=== PATIENT | female | born 1990 | race Caucasian/White ===

== ENCOUNTER → 2019-12-16 14:14 | Outpatient (BNVA) | payer BC, SELFPAY | PROVIDERS: Family Provider Physician Assistant Medical; PCP Physician Assistant Medical; Visit Provider Obstetrics & Gynecology | DX: Z78.9 Other specified health status (principal); N76.0 Acute vaginitis; B37.3 Candidiasis of vulva and vagina | CPT/HCPCS: 87210; 88175 ==

== ENCOUNTER → 2024-10-11 10:26 | Outpatient (BNVA) | payer BC, SELFPAY | PROVIDERS: Family Provider Physician Assistant Medical; PCP Physician Assistant Medical; Visit Provider Nurse Practitioner Women's Health | DX: Z34.90 Encounter for supervision of normal pregnancy, unspecified, unspecified trimester (principal) | CPT/HCPCS: 76815; 80307; 81025; 84443; 85025; 86592; 86762; 86803; 86850; 86900; 87086; 87340; 87491; 87591; 87661; 87806 ==

== ENCOUNTER → 2024-10-25 13:38 | Outpatient (BNVA) | payer BC, SELFPAY | PROVIDERS: Family Provider Physician Assistant Medical; PCP Physician Assistant Medical; Visit Provider Obstetrics & Gynecology | DX: Z34.80 Encounter for supervision of other normal pregnancy, unspecified trimester (principal) | CPT/HCPCS: 84315; 87624 ==

== ENCOUNTER → 2024-11-21 14:44 | Outpatient (BNVA) | payer BC, SELFPAY | PROVIDERS: Family Provider Physician Assistant Medical; PCP Physician Assistant Medical; Visit Provider Obstetrics & Gynecology | DX: Z34.92 Encounter for supervision of normal pregnancy, unspecified, second trimester (principal); Z3A.20 20 weeks gestation of pregnancy; R93.89 Abnormal findings on diagnostic imaging of other specified body structures | CPT/HCPCS: 76805 ==

== ENCOUNTER → 2024-12-02 16:04 | Outpatient (BNVA) | payer BC, SELFPAY | PROVIDERS: Family Provider Physician Assistant Medical; PCP Physician Assistant Medical; Visit Provider Obstetrics & Gynecology | DX: Z34.80 Encounter for supervision of other normal pregnancy, unspecified trimester (principal) | CPT/HCPCS: 84315 ==

== ENCOUNTER → 2024-12-20 08:05 | Outpatient (BNVA) | payer BC, SELFPAY | PROVIDERS: Family Provider Physician Assistant Medical; PCP Physician Assistant Medical; Visit Provider Obstetrics & Gynecology | DX: Z36.9 Encounter for antenatal screening, unspecified (principal) | CPT/HCPCS: 76816; 84315 ==

== ENCOUNTER → 2025-01-18 08:08 | Outpatient (BNVA) | payer BC, SELFPAY | PROVIDERS: Family Provider Physician Assistant Medical; PCP Physician Assistant Medical; Visit Provider Obstetrics & Gynecology | DX: Z34.80 Encounter for supervision of other normal pregnancy, unspecified trimester (principal) | CPT/HCPCS: 82950; 84315; 85025 ==

== ENCOUNTER → 2025-01-30 07:48 | Outpatient (BNVA) | payer BC, SELFPAY | PROVIDERS: Family Provider Physician Assistant Medical; PCP Physician Assistant Medical; Visit Provider Obstetrics & Gynecology | DX: Z34.80 Encounter for supervision of other normal pregnancy, unspecified trimester (principal) | CPT/HCPCS: 84315 ==

== ENCOUNTER 2025-02-02 14:50 | Outpatient (CLI) | payer BC, SELFPAY ==
[2025-02-02 14:50] VITALS: BMI 31.4
[2025-02-02 15:14] VITALS: BP 133/76; PULSE 71
--- NOTE | 2025-02-02 15:48 | USR_ITS ---
PROCEDURE INFORMATION: Exam: US Abdomen, Limited; Right Upper Quadrant Exam date and time: 02/02/2025 4:08 PM Age: 34 years old Clinical indication: Abdominal pain; Generalized TECHNIQUE: Imaging protocol: Real time ultrasound of the abdomen with image documentation. Limited exam focused on the right upper quadrant. COMPARISON: [place] [id number] 12/20/2024 8:09 AM FINDINGS: Liver: Normal. No masses. Gallbladder: Normal. No gallstones. There is no gallbladder wall thickening. Biliary ducts: Normal. No stones. No dilation. Pancreas: Visualized pancreas is unremarkable. Right kidney: Normal. No mass. No hydronephrosis. US/US gall bladder [id number] IMPRESSION: No acute findings.
[2025-02-02 17:20] VITALS: BP 111/72; PULSE 68
== END 2025-02-02 17:25 | disposition home or self-care (01) ==
LOC: OPOB 14:56 → OBGYN 14:57
PROVIDERS: Family Provider Physician Assistant Medical; PCP Physician Assistant Medical; Visit Provider Obstetrics & Gynecology
DX: O26.899 Other specified pregnancy related conditions, unspecified trimester (principal); Z3A.00 Weeks of gestation of pregnancy not specified; K82.9 Disease of gallbladder, unspecified; R10.9 Unspecified abdominal pain
CPT/HCPCS: 59025; 76705; 99211

== ENCOUNTER 2025-02-15 20:06 | Outpatient (CLI) | payer BC, SELFPAY ==
[2025-02-15] VITALS (10 sets, daily range): BP systolic 104–152; BP diastolic 57–84; PULSE 71–82; RESP 17; TEMP 36.6; O2SAT 100; BMI 32.4
--- NOTE | 2025-02-15 22:14 | USR_ITS ---
PROCEDURE INFORMATION: Exam: US , Limited Exam date and time: 02/15/2025 10:42 PM Age: 34 years old Clinical indication: Lmp or gestational age (in weeks): 32w 4 d by lmp; Antepartum complications; Bleeding; ; G3-p2-a0-l2 presenting with light spotting today, now resolved; Additional info: Vaginal bleeding, fluid levels, placenta location and condition, cervical LABS AND CLINICAL REPORTS: Last menstrual period start date: 07/02/2024 Gestational age (Established): 32 w 4 d Estimated due date (Established): 04/08/2025 TECHNIQUE: Imaging protocol: Real-time ultrasound of the maternal uterus with image documentation. Exam focused on the clinical indication. COMPARISON: [place] [id number] 12/20/2024 8:09 AM FINDINGS: Gestation: Intrauterine gestation. heart rate: 135 bpm presentation and position: Cephalic Placenta: Posterior and Left grade 1 placenta without previa. Amniotic fluid (Qualitative): Amniotic fluid volume is normal. Amniotic fluid index: NELSON is 16.7 cm. ANATOMY: midline falx: midline falx is normal. cerebellum: cerebellum is normal. lateral ventricles: lateral ventricles are normal. cisterna magna: cisterna magna is normal. choroid plexus: choroid plexus is normal. face: facial profile is normal. upper lip and nose are normal. kidneys: kidneys are normal. stomach: stomach is normal. urinary bladder: bladder is normal. spine: No visualized abnormalities of spine. Umbilical cord and insertion: 3-vessel umbilical cord is seen. BIOMETRY: Estimated due date (AUA): 04/03/2025 Estimated weight: 2183 g, 67th percentile. EFW by AC, BPD, FL, HC, Hadlock 1985 Biparietal diameter (BPD): 8.1cm. EGA (BPD) is 32 w 5 d. 46.5 % percentile Head circumference (HC): 30.5 cm. EGA (HC) is 34 w 0 d. 50.5 % percentile Abdominal circumference (AC): 29.5 cm. EGA (AC) is 33 w 3 d. 76.3 % percentile Femur length (FL): 6.4 cm. EGA (FL) is 33 w 1 d. 55.2 % percentile HC/AC: 1.03. (Normal range: 0.96 - 1.11) FL/HC: 21.05. (Normal range: 19.76 - 21.59) FL/BPD: 78.99. (Normal range: 71 - 87) FL/AC: 21.79. (Normal range: 20 - 24) MATERNAL: Cervix: Cervical length measures 3.3 cm. US/US OB limited [id number] IMPRESSION: Living Gutierrez fetus is in cephalic position. Normal amniotic fluid. Posterior placenta without evidence of previa.
== END 2025-02-16 00:05 | disposition home or self-care (01) ==
LOC: OPOB 20:11 → OBGYN 20:13
PROVIDERS: Family Provider Physician Assistant Medical; PCP Physician Assistant Medical; Visit Provider Obstetrics & Gynecology
DX: O26.859 Spotting complicating pregnancy, unspecified trimester (principal); Z3A.00 Weeks of gestation of pregnancy not specified; R10.9 Unspecified abdominal pain
CPT/HCPCS: 59025; 76815; 99211

== ENCOUNTER → 2025-03-02 08:37 | Outpatient (BNVA) | payer BC, SELFPAY | PROVIDERS: Family Provider Physician Assistant Medical; PCP Physician Assistant Medical; Visit Provider Obstetrics & Gynecology | DX: Z34.90 Encounter for supervision of normal pregnancy, unspecified, unspecified trimester (principal); Z36.9 Encounter for antenatal screening, unspecified | CPT/HCPCS: 76816; 84315 ==

== ENCOUNTER → 2025-03-15 08:04 | Outpatient (BNVA) | payer BC, SELFPAY | PROVIDERS: Family Provider Physician Assistant Medical; PCP Physician Assistant Medical; Visit Provider Obstetrics & Gynecology | DX: Z34.90 Encounter for supervision of normal pregnancy, unspecified, unspecified trimester (principal) | CPT/HCPCS: 84315; 87081 ==

== ENCOUNTER → 2025-03-22 08:33 | Outpatient (BNVA) | payer BC, SELFPAY | PROVIDERS: Family Provider Physician Assistant Medical; PCP Physician Assistant Medical; Visit Provider Obstetrics & Gynecology | DX: Z34.90 Encounter for supervision of normal pregnancy, unspecified, unspecified trimester (principal) | CPT/HCPCS: 84315 ==

== ENCOUNTER → 2025-03-29 14:04 | Outpatient (BNVA) | payer BC, SELFPAY | PROVIDERS: Family Provider Physician Assistant Medical; PCP Physician Assistant Medical; Visit Provider Obstetrics & Gynecology | DX: Z34.80 Encounter for supervision of other normal pregnancy, unspecified trimester (principal) | CPT/HCPCS: 84315 ==

== ENCOUNTER 2025-04-04 05:17 | Inpatient (IN) | payer BC, SELFPAY ==
--- NOTE | 2025-03-22 10:47 | P.ANESASSM_ITS ---
Pre-Anesthetic Assessment Height/Weight: Height 5 ft Preop Diagnosis: Planned Operation Date: 04/04/25 07:20 Proposed Procedures p Section Repeat(Not Applicable) - Robert Parish MD Was Beta Hermelindo taken within 24 hours: N/A Was Clonidine taken within 24 hours: N/A Social No alcohol and No tobacco Exam alert, oriented x 3, clear to auscultation bilaterally and regular rate & rhythm Airway Submandibular: within normal limits Cervical ROM: within normal limits Mallampati: Class III Dentition: full Anesthetic Plan ASA status: 2 Anesthesia: Regional (specify below) Other: No prior issues with anesthesia Patient here to discuss planned Patient admits to GERD during , on Pepcid Denies any cardiac or pulmonary issues Will obtain labs prior to procedure Plan for routine with spinal anesthesia Medications/Allergies Home Medications ?Medication ?Instructions ?Recorded ?Confirmed ?Last Taken ?Type tramadol 50 mg tablet 50 mg PO BID PRN pain #20 ta bs 02/02/25 03/22/25 Unknown Rx docusate sodium 100 mg capsule 100 mg PO BID #60 caps 03/02/25 03/22/25 Unknown Rx (Colace) famotidine 20 mg tablet (Pepcid) 20 mg PO BID #60 tabs 03/02/25 03/22/25 Unknown Rx magnesium hydroxide 400 mg/5 mL 5 ml PO DAILY PRN stom ach upset 03/02/25 03/22/25 Unknown Rx oral suspension (Milk of Magnesia) #3,000 mL metronidazole 0.75 % (37.5 mg/5 1 appful vaginal DAILY 5 days #70 03/15/25 03/22/25 Unknown Rx gram) vaginal gel (Vandazole) grams metronidazole 500 mg tablet 500 mg PO BID #14 tabs 08/2903/22/25 Unknown Rx Allergies Allergy/AdvReac Type Severity Reaction Status Date / Time No Known Allergies Allergy Verified 03/22/25 08:16 [facility] Anesthesia Medical History Blood type O+ Contraception management 02/15/2016: Started on Depo-Provera. Stopped 2017. Surgical History History of placement of ear tubes As a child History of section, low transverse (01/02/16) Repeat LTCS. Performed by Dr. Arevalo at [facility] in [place], [place]. History of section, low transverse (03/15/12) Performed by Dr. Dickey at [facility] in [place], [place]. (Operative report reviewed on 07/15/2015. Documented 2 layer closure of a low transverse section.). History of tonsillectomy and adenoidectomy (~2001) Family History Family/Other Hypertension maternal uncle Grandfather Hypertension maternal Hypercholesteremia maternal Family/Other Diabetes maternal aunt Sister Stroke Grandmother Breast cancer paternal Social History Smoking and tobacco/nicotine status: never used tobacco/nicotine Alcohol intake: former Substance/Drug Use: never
[2025-04-04] VITALS (38 sets, daily range): BP systolic 96–165; BP diastolic 41–118; PULSE 55–77; RESP 15–16; TEMP 36.4–36.9; O2SAT 99–100; BMI 32.9
--- OUTSIDE RECORDS SUMMARY | 2025-04-04 05:21 | XMS_ITS | Clinical Summary ---
Author Organization [facility] Address [facility] [place] [address] Care Team Providers Care Radial Saw Operator Name Role Phone Uma Sutton MD Primary Care Provider [phone] Allergies No known active allergies Medications predniSONE (DELTASONE) 20 mg tablet Take 1 Tablet (20 mg) by mouth daily. 7 Tablet 0 12/12/2020 Active Immunizations Immunization Administration Dates Next Due Dt Dtp Dtap Vaccine 07/07/2006,05/04/1996 Hepatitis B Vaccine 07/08/2004,06/30/2002,1995 Social History Tobacco Use Types Packs/Day Years Used Date Smoking Tobacco: Never Smokeless Tobacco: Never Alcohol Use Standard Drinks/Week Comments No 0 (1 standard drink = 0.6 oz pur e alcohol) Comments Unknown Sex and Gender Information Value Date Recorded Sex Assigned at Not on file Legal Sex Female 2:29 PM TYPER Gender Identity Not on file Sexual Orientation Not on file Last Filed Vital Signs Vital Sign Reading Time Taken Comments Blood Pressure 120/70 12/12/2020 4:04 PM TYPER Pulse 63 12/12/2020 4:04 PM TYPER Temperature 36.5 C (97.7 F) 12/12/2020 4:04 PM TYPER Respiratory Rate 16 12/12/2020 4:04 PM TYPER Oxygen Saturation - - Inhaled Oxygen Concentration - - Weight 63.6 kg (140 lb 3.2 oz) 12/12/2020 4:04 P M TYPER Height 152.5 cm (5' 0.05 ) 12/12/2020 4:04 PM CS T Body Mass Index 27.34 12/12/2020 4:04 PM TYPER Plan of Treatment Health Maintenance Due Date Last Done Comments HPV/Cotest (21-29) 2011 DTAP/TDAP/TD VACCINES (3 - Tdap) 07/07/2016 07/07/2006, 05/04/1996 CERVICAL CANCER SCREENING 2020 HPV/Cotest (30-65) 2020 PAP SMEAR 2020 INFLUENZA VACCINE (#1) 2024 , 11/23/2018 HEPATITIS B VACCINES Completed 07/08/2004, 06/30/2002, 07/06/1996 HPV VACCINES Aged Out No longer eligi ble based on patient's age to complete this topic Care Teams Radial Saw Operator Relationship Specialty Start Date End Date Uma Sutton MD [address] [id number] PCP - General 12/10/20
--- OUTSIDE RECORDS SUMMARY | 2025-04-04 05:21 | XMS_ITS | Clinical Summary ---
Author Organization [facility] [place] [facility] [address] Care Team Providers Care S3B Multi Sensor Operator Name Role Phone Uma Sutton MD Primary Care Provider [phone] Allergies No known active allergies Medications predniSONE (DELTASONE) 20 mg tablet Take 1 Tablet (20 mg) by mouth daily. 7 Tablet 12/12/2020 Active Active Problems No known active problems Immunizations Immunization Administration Dates Next Due Dt Dtp Dtap Vaccine 07/07/2006,05/04/1996 Hepatitis B Vaccine 07/08/2004,06/30/2002,1995 Social History Tobacco Use Types Packs/Day Years Used Date Smoking Tobacco: Never Smokeless Tobacco: Never Alcohol Use Standard Drinks/Week Comments No 0 (1 standard drink = 0.6 oz pur e alcohol) Comments No Sex and Gender Information Value Date Recorded Sex Assigned at Not on file Legal Sex Female 6:24 AM SECURITY FIELD SUPERVISOR Gender Identity Not on file Sexual Orientation Not on file Last Filed Vital Signs Vital Sign Reading Time Taken Comments Blood Pressure 120/70 12/12/2020 4:04 PM SECURITY FIELD SUPERVISOR Pulse 63 12/12/2020 4:04 PM SECURITY FIELD SUPERVISOR Temperature 36.5 C (97.7 F) 12/12/2020 4:04 PM SECURITY FIELD SUPERVISOR Respiratory Rate 16 12/12/2020 4:04 PM SECURITY FIELD SUPERVISOR Oxygen Saturation 99% 12/12/2020 4:04 PM SECURITY FIELD SUPERVISOR Inhaled Oxygen Concentration - - Weight 63.6 kg (140 lb 3.2 oz) 12/12/2020 4:04 P M SECURITY FIELD SUPERVISOR Height 152.5 cm (5' 0.05 ) 12/12/2020 4:04 PM CS T Body Mass Index 27.34 12/12/2020 4:04 PM SECURITY FIELD SUPERVISOR Plan of Treatment Health Maintenance Due Date Last Done Comments HPV/Cotest (21-29) 2011 DTAP/TDAP/TD VACCINES (3 - Tdap) 07/07/2016 07/07/2006, 05/04/1996 CERVICAL CANCER SCREENING 2020 HPV/Cotest (30-65) 2020 PAP SMEAR 2020 INFLUENZA VACCINE (#1) 2024 , 11/23/2018 Preventative Visit- Commercial 10/05/2024 HEPATITIS B VACCINES Completed 07/08/2004, 06/30/2002, 07/06/1996 HPV VACCINES Aged Out No longer eligi ble based on patient's age to complete this topic Insurance [employer]BS Care Teams S3B Multi Sensor Operator Relationship Specialty Start Date End Date Uma Sutton MD [address] [facility] [address] [place] [id number] PCP - General Family Practice 11/23/18
--- OUTSIDE RECORDS SUMMARY | 2025-04-04 05:21 | XMS_ITS | Data Portability ---
Author Organization [facility] Address [address] [place] [address] Assessment No assessment recorded. Plan of Treatment Reminders Order Date Submit Date Provider Last Modified By Organization Details Last Modified Time Details Appointments None recorded. Lab rapid strep group A, throat [email or web address], [address], 5 11:32:58 rapid strep group A, throat 2021 [address] [place] [id number] 7 [facility], [address] [place] [address], [address], 2 15:11:46 rapid flu (A+B) [address], [address], 15:11:46 Referral None recorded. Procedures None recorded. Surgeries None recorded. Imaging None recorded. Medication Orders hydroxyzine HCl 25 mg tablet 2021 [facility] [place], [place], [address] [place], [address], 10:29:23 Patient TargetsNo targets recorded. Patient Instructions Encounter Date Encounter Id Patient Instructions Last Modified By Organization Details Last Modified Time 02/16/2023 [id number] Contacted Adrianna Rosadous and informed her Norm Taylor is no longer with us. Laura Aundrea is the new provider at [facility] in [place]. I asked if she would be okay with Lauramiguelangel Guillaume being her new primary provider. She said that would be fine. I updated her chat. CALI wagner [email or web address] Not available 02/16/2023 09:43:15 10/26/2024 [id number] heart-healthy diet: care instructions Not available 10/26/2024 11:32:58 walking for exercise: care instructions Not available 10/26/2024 11:32:58 Reason for Referral None Reported. Results Created Date Observation Date Name Description Value Unit Range Abnormal Flag Note LastModifiedBy Organization Detail LastModifiedTime 12/18/19 22 12/17/2021 rapid flu (A+B) Flu A negati ve Not Available [address], [address], 12/17/2021 14:35:17 12/18/19 22 12/17/2021 rapid flu (A+B) Flu B negati ve Not Available [address], [address], 12/17/2021 14:35:17 12/18/19 22 12/17/2021 rapid strep group A, throa t Strep negati ve Not Available [address], [address], 12/17/2021 14:35:16 10/26/19 25 10/26/2024 rapid strep group A, throa t Strep negati ve Not Available [address], [address], 10/26/2024 10:42:58 Result Notes None recorded. 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 Created By: ANA M THORNE; Modified By: ANA M THORNE; Category: DD; Examiner: Ana M Thorne; Medicine Descripti on: NONPURULE NT MASTITIS ASSOCIATE D WITH ; Display in Medcin: YES; Display in ESB: YES; Confident iality Level: Level 1; Type: Diagnosis Not Available [facility] 6 21:01:56 General examinati on of patient Active 2005 Category: DD; Medicine Descripti on: visit for: general multisyst em exam; Display in Medcin: YES; Display in ESB: YES; Confident iality Level: Level 1 Not Available [facility] 6 21:01:56 Acute pharyngit is 084630663 Active 2005 Category: DD; Medicine Descripti on: sore throat; Display in Medcin: YES; Display in ESB: YES; Confident iality Level: Level 1 Not Available [facility] 6 21:02:01 Urinary tract infectiou s disease 39126251 Active 2009 Created By: FRAN GLASGOW; Modified By: FRAN GLASGOW; Category: DD; Examiner: Fran Glasgow; Medicine Descripti on: URINARY TRACT INFECTION ; Display in Medcin: YES; Display in ESB: YES; Confident iality Level: Level 1 Not Available [facility] 6 21:02:01 Acne 40772296 Active 2005 Category: DD; Medicine Descripti on: ACNE; Display in Medcin: YES; Display in ESB: YES; Confident iality Level: Level 1 Not Available [facility] 6 21:02:01 Injury of elbow 489555693 Active 2006 Created By: KRISTA GERBER; Category: DD; Examiner: Krista Gerber; Medicine Descripti on: INJURY OF UPPER EXTREMITY ELBOW; Display in Medcin: YES; Display in ESB: YES; Confident iality Level: Level 1 Not Available [facility] 6 21:02:01 Shoulder joint pain 068158183 Active 2006 Created By: KRISTA GERBER; Category: DD; Examiner: Krista Gerber; Medicine Descripti on: joint pain, localized in the shoulder; Display in Medcin: YES; Display in ESB: YES; Confident iality Level: Level 1 Not Available [facility] 6 21:02:01 Allergic rhinitis 13466052 Active 2005 Category: DD; Medicine Descripti on: ALLERGIC RHINITIS; Display in Medcin: YES; Display in ESB: YES; Confident iality Level: Level 1 Not Available [facility] 6 21:02:01 Anxiety 05231344 Active 2021 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 Medical Equipment None Reported. Allergies No known drug allergies Medications Name Sig Start Date Stop Date Status Note LastModified by Organization Details LastModified Time azithromyci n 250 mg tablet TAKE 2 TABLETS BY MOUTH TODAY, THEN TAKE 1 TABLET BY MOUTH DAILY FOR 4 MORE DAYS 12/17 completed Not Available Not Available Not Available hydroxyzine HCl 25 mg tablet Take 1 tablet 3 times a day by oral route as needed. 10/26 completed Not Available Not Available Not Available methylpredn isolone 4 mg tablets in a dose pack FOLLOW PACKAGE DIRECTION S 12/17 completed Not Available Not Available Not Available Vitals Date Recorded Body weight Body mass index (BMI) Body height Heart rate Oxygen saturation Oxygen saturation in Arterial blood by Pulse oximetry Respiratory rate Systolic blood pressure Diastolic blood pressure Provider Name and Address Organization Details Last Updated DateTime 5 09761.4 9 g 28 kg/m2 153.67 cm 77 /min 100 % 100 % 20 /min 116 mm[Hg] 72 mm[Hg] Dari Counts [facility] 5 10:27:12 Date Recorded Body height Body mass index (BMI) Body weight Body temperature Heart rate Oxygen saturation Oxygen saturation in Arterial blood by Pulse oximetry Respiratory rate Systolic blood pressure Diastolic blood pressure Provider Name and Address Organization Details Last Updated DateTime 2 153.67 cm 25.8 kg/m2 13258.1 8 g 99.1 [degF] 81 /min 99 % 99 % 18 /min 110 mm[Hg] 70 mm[Hg] Coral Murphy [facility] 14:23:31 Social History Question Answer Notes LastModified by Organizat ion Details LastModified Time Tobacco Smoking Status Never Smoker Dari jesus [facility] 10/26/2024 10:32:45 Do You Have An Advance Directive? No Information not available 10/26/2024 Are You Blind Or Do You Have Difficulty Seeing? No Information not available 10/26/2024 Is Blood Transfusion Acceptable In An Emergency? Yes Information not available 10/26/2024 What Is Your Level Of Caffeine Consumption? Moderate Information not available 10/26/2024 In The 14 Days Before Symptom Onset, Have You Had Close Contact With A Laboratory-confir med COVID-19 While That Case Was Ill? No Information not available 10/26/2024 In The 14 Days Before Symptom Onset, Have You Had Close Contact With A Person Who Is Under Investigation For COVID-19 While That Person Was Ill? No Information not available 10/26/2024 Have You Been To An Area Known To Be High Risk For COVID-19? No Information not available 10/26/2024 Are You Deaf Or Do You Have Serious Difficulty Hearing? No Information not available 10/26/2024 What Type Of Diet Are You Following? REGULAR Information not available 10/26/2024 Have You Processed Blood Or Body Fluids From An Ebola Virus Disease Patient Without Appropriate PPE? No Information not available 10/26/2024 What Is The Highest Grade Or Level Of School You Have Completed Or The Highest Degree You Have Received? [id number] Information not available 10/26/2024 What Was The Date Of Your Most Recent Tobacco Screening? 10/26/2024 Information not available 10/26/2024 How Many Children Do You Have? 2 Information not available 10/26/2024 What Is Your Relationship Status? Information not available 10/26/2024 Do You Use Your Seat Belt Or Car Seat Routinely? Yes Information not available 10/26/2024 Are You Sexually Active? Yes Information not available 10/26/2024 Do You Have Difficulty Walking Or Climbing Stairs? No Information not available 10/26/2024 Do You Want To Talk About Contraception Or Prevention During Your Visit Today? No - This Question Does Not Apply To Me/I Prefer Not To Answer Currently Information not available 10/26/2024 Sex: Female Functional Status Question Answer Note LastModified by Organizat ion Details LastModified Time Do you use any illicit or recreational drugs? No Information not available 10/26/2024 Do you or have you ever used any other forms of tobacco or nicotine? No Information not available 10/26/2024 What is your level of alcohol consumption? None Information not available 10/26/2024 Are you currently employed? Yes Information not available 10/26/2024 Do you have transportation difficulties? No Information not available 10/26/2024 Are you able to walk? YESWOREST Information not available 10/26/2024 Do you have difficulty doing errands alone? No Information not available 10/26/2024 Are you able to care for yourself? 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 No Information not available 10/26/2024 What is your exercise level? Moderate Information not available 10/26/2024 Mental Status Question Answer Note LastModified by Organization D etails LastModified Time Do you have difficulty concentrating, remembering or making decisions? No Information no t available 10/26/2024 Family History Nothing Reported. Medical History Condition Response Other N Gout N Kidney Stones N Blood Diseases N Hyperthyroidism N Blood Transfusion N COPD N Depression N Incontinence N Edema N Endocrine Disorders N Anxiety Disorder N Muscle, Joint, or Bone Problems N Obesity N Vision or Eye Problems N Arthritis N Auditory Hallucinations N Infertility N Cancer N Stroke N Varicosities N Headaches N Fibromyalgia N Kidney Disease N Abnormal Bleeding N Reproductive System Problems N Ear or Hearing Problems N Hospitalizations N Learning Disorder N Skin Problems N Eating Disorder N MRSA exposure N Urinary Problems N Constipation N Brain Injury N Visual Hallucinations N AIDS/HIV N Tuberculosis N Back Problems N Asthma N GERD/Reflux N Hepatitis N Pulmonary Embolism N Chronic Ear Infections N Chicken Pox N Autism Spectrum Disorder (ASD) N Thrombophilias N Thyroid Disease N Breast Cancer N Hypothyroidism N Lung Disease N Developmental or Behavioral Disorders N Defects or Inherited Disease N Breast Problem N Difficulty Swallowing N Anesthesia Complications N Deep Vein Thrombosis N Meniere's disease N Hearing Loss N Head Injury/Concussion N Congenital Anomalies N Abnormal Pap Smear N Endometriosis N Bladder or Kidney Problems N High Cholesterol N Nervous System Disorder N Liver Disease N Psychiatric/Mental Health Condition N Schizophrenia N Allergies/Hayfever N Parkinson's Disease N GI Problems N ADD/ADHD N Anemia N Colon Polyps N Heart Attack ([place]) N Diabetes N Ovarian Cancer N Bedwetting N Seizures/Epilepsy N Amnesia N Congestive Heart Failure (CHF) N Eczema N Dementia N Diverticulitis N Abuse/Domestic Violence N Cardiovascular N Tourette Syndrome N Hypertension N Pre-Eclampsia N Osteoporosis N Gynecological History Statement/Question Response Date of LMP Obstetrics History GPAL:G 0 P 0 0 0 0 Past Encounters Encounter ID Performer Location Encounter Start Date Encounter Closed Date Diagnosis/Indication Diagnosis SNOMED-CT Code Diagnosis ICD10 Code Diagnosis Note [id number] Mariza Roque MD [facility] [address] [place] [address] 12/17/2021 14:02:10 12/17/2021 16:07:01 Pain in throat 827124029 R07.0 In house rapid strep and influenza tests negative, patient notified of results. Pharyngitis 758692898 J0 2.9 Encouraged symptomati c treatment such as increased fluids and warm salt water gargles.Ma y give Tylenol or Ibuprofen for pain and fever as needed.RTC or seek care if symptoms worsen or experience fever >104, difficulty breathing, or dehydratio n.Question s encouraged and answered, verbalized understand ing. Anxiety 14818980 F41.9 JANNETTE 9. Discussed importance of cognitive behavioral therapy in relation to anxiety symptoms to learn coping techniques , removal of negative thoughts, and gradual desensitiz ation of feared stimuli. Patient states she will consider counseling services.D iscussed anxiety and different treatment options. Patient declined SSRI treatment. Script sent in for hydroxyzin e to take as needed for times of panic.Sita ent to RTC if symptoms worsen. [id number] Sharmila bush [employer] [address] [facility] [place] [address] 02/16/2023 09:40:43 02/16/2023 09:43:20 [id number] KARLY GIL DO [facility] [place] [address] [facility] [place] [address] 10/26/2024 09:55:45 10/27/2024 08:53:53 Body mass index 25-29 - overweight 503417412 Z68.28 BMI 28 Diet education 28967581 Z71.3 Exercises education, guidance, and counseling 331531206 Z71.82 Exposure t o Streptococcus 907442095 Z20.818 Her strep is negative. Discussed she can still possibly get it due to exposure. If she gets symptomati c let provider know and may come in as nurse visit to get reswabbed. Health Concerns Section Related Observation LastModified by Organization Detai ls LastModified Time None Recorded Concern Status LastModified by Organization Details LastModified Time None Recorded Advance Directives Directive N: Payers Insurance Date Sequence Insurance Name Policy Number Policy Pollard Covered Member ID Pollard Member ID Guarantor Name 12/17/2021 1 [place] [id number] Brennan Askew [id number] Adrianna Askew 11/02/2024 1 [place] [id number] Brennan Askew [id number] Adrianna Askew Notes Date Note Type Note Provider Name and Address Organization Details Recorded Time 12/17/2021 text/html Patient presents in office with complaints of sore throat and headache. She states her symptoms started about a week ago. She thinks it is allergies but she woke up with a really bad sore throat on Thursday and it lasting all day. She had nasal drainage last week but it has resolved. 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 She reports she does have allergy problems but she does not like to take medication for it unless she has to. Also has been diagnosed with dermatographia. States she suffers with anxiety but has a reaction to most medications in which she feels out of her body and in a zone so she is hesitant to take anything. She states sometimes she takes a half of a Benadryl. She reports she does feel anxious alot of time which is relieved by prayer. However, she was very stressed last week and she woke up night having a panic attack. During this attack she reported sweating, nausea, heart racing and lightheadedness. She states that is the first time she has had a panic attack. 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 Occasional headache but nothing new. No fever. She works at school and was exposed to strep. She is 16 weeks and wanted to be swabbed for strep Laura Guillaume, GURVINDER [address], [address], [facility] 10/26/2024 11:31:01 OBGyn Episode No OBEpisode recorded.
--- OUTSIDE RECORDS SUMMARY | 2025-04-04 05:21 | XMS_ITS | Encounter Summary ---
Author Organization [facility] Address [address] [place] [address] Care Team Providers Care Traffic Administrator Name Role Phone Uma Sutton MD Primary Care Provider [phone] Encounter Details Date Type Department Care Team (Latest Contact Info) Description 11/25/2002 Outpatient Historical [facility] [place] [address] [place] [address] Gregory Ibrahim MD NO ADDRESS ON FILE CHRONIC RHINITIS (Primary Dx) Social History Tobacco Use Types Packs/Day Years Used Date Smoking Tobacco: Never Assessed Comments Unknown Sex and Gender Information Value Date Recorded Sex Assigned at Not on file Legal 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
[2025-04-04 06:35] LABS: Hematocrit 32.5 % (36-47); Hemoglobin 10.70 g/dL (11.27-16.99); Mean Corpuscular HGB Conc 32.9 g/dL (30-55); Mean Corpuscular Hemoglobin 29.6 pg (27-33); Mean Corpuscular Volume 90.0 fl (85-98); Nucleated Red Blood Cells % 0 %; Platelet Count 202 10^3/cmm (157-399); Red Blood Count 3.61 10^6/uL (3.85-5.65); White Blood Count 6.11 10^3/uL (3.29-11.43)
[2025-04-04] MEDS: citric acid-sodium citrate 30 mL UDC PO (06:54)
[2025-04-04] MEDS: metoclopramide 5 mg/mL SDV 2 mL 10 MG IVP (06:55)
--- NOTE | 2025-04-04 06:55 | P.ANESUD_ITS ---
Pre-Anesthetic Update Pre-Anesthetic Assessment: Date of Surgery/Procedure: 04/04/25 Preop Neli gnosis: Planned Proposed Procedure: Operation Date: 04/04/25 07:20 Proposed Procedures p Section Repeat(Not Applicable) - Robert Parish MD Any changes to Pre-Anesthetic Assessment?: No Last Intake: Intake Last Liquid Date 04/03/25 Last Liquid Time 23:00 Last Solid Date 04/03/25 Last Solid Time 19:00 Labs Last 48hrs: Short CBC 04/04/25 Range/Units 06:25 WBC 6.11 (3.29-11.43) 10^ 3/uL Hgb 10.70 L (11.27-16.99) g/ dL Hct 32.5 L (36-47) % MCV 90.0 (85-98) fl Plt Count 202 (157-399) 10^3/c mm Neut % (Auto) 66.1 % Neut # (Auto) 4.03 (1.8-7.7) 10^3/u L Vitals: Pulse Rate 72 04/04/25 06:38 Pulse Rhythm Regular 04/04/25 05:22 Pulse Strength 3+ Normal 04/04/25 05:22 Respiratory Effort Spontaneous, Non- Labored 04/04/25 05:22 Respiratory Depth Normal 04/04/25 05:22 Respiratory Patter n Normal 04/04/25 05:22 Blood Pressure 129/73 04/04/25 06:38 Oxygen Delivery Me thod Room Air 04/04/25 05:22 Exam: Pre-Anes Outpt Exam: alert and oriented x 3
--- NOTE | 2025-04-04 06:58 | PM.OBGYHP ---
Providers/Chief Complaint Admitting Physician: Robert Parish MD Primary SEISMIC INTERPRETER: Robert Parish MD Primary Care Provider: David Abreu Chief Complaint: C Section HPI SEISMIC INTERPRETER History of Present Illness Adrianna Askew is a 34 year old female at 39 w 3 d no complications h/o previous c-sections x two admitted for repeat Present Details : 3 Para: 2 Labs Rubella: Immune RPR: Negative GBS: Negative Medications/Allergies Home Medications ?Medication ?Instructions ?Recorded ?Confirmed ?Last Taken ?Type docusate sodium 100 mg capsule 100 mg PO BID #60 caps 03/02/25 04/04/25 04/03/25 19:00 Rx (Colace) famotidine 20 mg tablet (Pepcid) 20 mg PO BID #60 tabs 03/02/25 04/04/25 04/03/25 19:00 Rx Allergies Allergy/AdvReac Type Severity Reaction Status Date / Time No Known Allergies Allergy Verified 03/29/25 11:15 PFSH SEISMIC INTERPRETER PFSH: Medical History Blood type O+ Contraception management 02/15/2016: Started on Depo-Provera. Stopped 2018. Surgical History History of placement of ear tubes As a child History of section, low transverse (01/02/16) Repeat LTCS. Performed by Dr. Arevalo at [facility] in [place], [place]. History of section, low transverse (03/15/12) Performed by Dr. Dickey at [facility] in [place], [place]. (Operative report reviewed on 07/15/2015. Documented 2 layer closure of a low transverse section.). History of tonsillectomy and adenoidectomy (~2001) Family History Family/Other Hypertension maternal uncle Grandfather Hypertension maternal Hypercholesteremia maternal Family/Other Diabetes maternal aunt Sister Stroke Grandmother Breast cancer paternal Social History Smoking and tobacco/nicotine status: never used tobacco/nicotine Alcohol intake: former Substance/Drug Use: never Other Female Reproductive History: Hx Age of Menarche: 14 Duration of menses: 3-5 days Cycle Length: every 28 days Menstrual flow: normal/abnormal: normal History History History 3 Term 2 0 Miscarriages/Ectopic 0 Living Children 2 Care KEYONA Calculator Estimated Delivery Date Method Current WG Current Estimate 04/08/25 LMP (Certain) 39w 3d Other Estimates 04/07/25 Ultrasound #1 39w 4d Specific Issues/Plans PLACENTA PREVIA: ultrasound on 10/11/24 showed lower margin of placenta partially overlying the internal cervical os, repeat scan on 12/20/24 showed placenta no longer over cervical os. HX OF X 2 Vitals/I&O/Wt Last Vital Signs Pulse 72 04/04/25 06:38 BP 129/73 04/04/25 06:38 O2 Del Method Room Air 04/04/25 05:22 Weight last 48 hrs Weight 168 lb 8 oz Physical Exam Const: COMMON NORMALS: no acute distress, average body habitus, patient oriented x3, no limitations, healthy appearing, alert and well nourished Resp: COMMON NORMALS: normal respiratory effort, No retractions, No use of accessory muscles and clear to auscultation bilaterally Cardio: COMMON NORMALS: regular rate and regular rhythm GI: COMMON NORMALS: Normal to inspection, nondistended, normoactive bowel sounds present and non-tender Data 04/04/25 06:25 Results Labs OB ([facility]): Obstetrics US 03/02/25 Blood Type O Positive 10/11/24 Antibody Screen Negative 10/11/24 Hct, (36-47) 32.5 % L Today Hgb, (11.27-16.99) 10.70 g/dL L Today Rho(D) Type Rh positive 10/11/24 Plt Count, (157-399) 202 10^3/cmm Today Hep Bs Antigen, (Nonreactive) Non-reactive 10/11/24 Hepatitis C Antibody, (Nonreactive) Non-reactive 10/11/24 Rubella IgG Antibody, (0.0-10.0) 29.4 IU/mL H 10/11/24 RPR, (Nonreactive) Nonreactive 10/11/24 HIV 1&2 Ab & HIV 1 Ag, (Non-Reactiv) Non-reactive 10/11/24 TSH, (0.27-4.20) 2.11 uIU/mL 10/11/24 Glucose 1 Hr 50 gm, (85-140) 90 mg/dL 01/18/25 HCG, Qual, (Negative) Positive H 10/11/24 Urine Opiates Screen, (Negative) Negative ng/mL 10/11/24 Ur Barbiturates Screen, (Negative) Negative ng/mL 10/11/24 Ur Phencyclidine Scrn, (Negative) Negative ng/mL 10/11/24 Ur Amphetamines Screen, (Negative) Negative ng/mL 10/11/24 U Benzodiazepines Scrn, (Negative) Negative ng/mL 10/11/24 Urine Cocaine Screen, (Negative) Negative ng/mL 10/11/24 U Marijuana (THC) Screen, (Negative) Negative ng/mL 10/11/24 Micro Urine Specimen 10/11/24 Pap Smear Interpret See note 10/25/24 A&P Assessment and plan (1) : 39 w 3 d (2) History of : plan repeat for delivery PDMP PDMP Reviewed: Not Reviewed Attestations Medical Necessity Statement*: patient at 39 w 3 d, admitted for repeat Coding Level of Care Code Acute Code for Chg Fwd Diagnoses 14 weeks gestation of Z3A.14 Weeks of gestation: 14 weeks History of Z98.891
--- NOTE | 2025-04-04 07:00 | W.PM.OPSUD ---
Surgery/Procedure H&P Update DATE OF PROCEDURE: April 04, 2025 DATE H&P PERFORMED: 04/04/25 H&P UPDATE INFORMATION: I have reviewed H&P completed within last 30 days, I have examined patient prior to procedure and No changes to prior documentation PREOP DIAGNOSIS: Planned PLANNED PROCEDURE: Operation Date: 04/04/25 07:20 Proposed Procedures p Section Repeat(Not Applicable) - Robert Parish MD
--- NOTE | 2025-04-04 08:12 | PM.OP2 ---
Brief Operative Note Date of procedure: 04/04/25 Pre-op diagnosis: 39 w 3 d; previous c-sections x two Post-op diagnosis: same Procedure Done: repeat low-transverse Surgeon: Robert Parish Estimated blood loss (mL): 400 Complications: none Post-op Plan: and postoperative care Condition: stable Disposition: floor Coding Level of Care Code Acute Code for Chg Fwd
--- NOTE | 2025-04-04 08:35 | PM.OP ---
Operative Report Date of procedure: April 04, 2025 Pre-op diagnosis: 39 w 3 d gestation previous c-sections x two for repeat Post-op diagnosis: same Post-op findings: Vigorous female clear amniotic fluid Normal placenta and cord Normal uterus, tubes, and ovaries Procedure done: Repeat low-transverse Implants: none Specimens removed/disposition: placenta and cord, discarded Surgeon: Robert Parish MD Anesthesia: Spinal Estimated blood loss (mL): 400 Complications: none Findings: Vigorous female infant clear amniotic fluid Normal placenta and cord Normal uterus, tubes, and ovaries Condition: stable Disposition: floor Brief History: 34 y.o. at 39 w 3 d with history of previous c-sections x two Procedure: Informed consent signed. Patient was taken to the operating room, placed supine in the left lateral tilt position. Spinal anesthesia and a Tejeda catheter were already placed. The abdomen was prepped and draped in the usual sterile fashion. A Pfannenstiel incision was made over an old scar and carried down through skin and subcutaneous tissue and fascia. The fascial incision was extended laterally with Robertson scissors. The fascia was from the underlying rectus muscles. The rectus muscles were split in the midline. The peritoneum was entered bluntly avoiding underlying organs. A bladder flap was created. A low transverse uterine incision was made and extended laterally bluntly avoiding the uterine vessels. Clear amniotic fluid was seen. The baby was delivered in cephalic presentation atraumatically. The baby was suctioned. The cord was clamped and cut and the baby was handed to an awaiting correction officer reformatory. Cord blood was obtained. The placenta was manually removed intact. The uterine cavity was bluntly curetted with wet laps. The uterine incision was then closed with a continuous interlocking stitch of O chromic. Adequate hemostasis was seen. No bleeding was seen. The uterine incision was again inspected and found to have good hemostasis. The fascia was then closed with a continuous stitch of O-Vicryl. Additional interrupted stitches of O-Vicryl were used for fascial closure. The subcutaneous tissue was irrigated and inspected for hemostasis. The skin was then reapproximated using Insorb mayra. Postoperative condition stable Disposition to recovery room Estimated blood loss 400 cc, no replacement Sponge, needle, and instrument counts were correct x two There were no complications
[2025-04-04 20:20] LABS: Hematocrit 25.9 % (36-47); Hemoglobin 8.50 g/dL (11.27-16.99); Mean Corpuscular HGB Conc 32.8 g/dL (30-55); Mean Corpuscular Hemoglobin 29.7 pg (27-33); Mean Corpuscular Volume 90.6 fl (85-98); Platelet Count 156 10^3/cmm (157-399); Red Blood Count 2.86 10^6/uL (3.85-5.65); White Blood Count 8.39 10^3/uL (3.29-11.43)
[2025-04-05 04:47] VITALS: BP 112/65; PULSE 75; RESP 15; TEMP 36.6; TEMP 36.7
[2025-04-05] MEDS: PRENATAL VIT NO.130/IRON/FOLIC 1 EACH TABLET PO (08:30)
[2025-04-05] MEDS: ferrous sulfate EC 325 mg Tablet PO (08:31)
[2025-04-05] MEDS: HYDROcodone-acetaminophen 5-325 mg Tablet PO (08:31)
[2025-04-05 09:21] VITALS: TEMP 36.4
[2025-04-05 09:22] VITALS: BP 115/69; PULSE 75
[2025-04-05 11:00] VITALS: TEMP 36.4
[2025-04-05 11:02] VITALS: BP 121/67; PULSE 67
--- NOTE | 2025-04-05 11:50 | P.PN_ITS ---
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 Subjective: Interval history: no c/o eating, voiding, ambulating well mild incisional pain, relieved with pain meds no bleeding no dizziness, weakness wants to go home without any difficulties Labor: Amniotic Membrane Status: Intact Vitals/I&O/Wt Last Vital Signs Temp 97.5 F L 04/05/25 11:00 Pulse 67 04/05/25 13:45 Resp 15 04/05/25 13:45 BP 121/67 04/05/25 13:45 Pulse Ox 100 04/04/25 08:45 O2 Del Method Room Air 04/04/25 21:35 Physical Exam 2 Narrative: General comfortable, awake, alert VS afebrile, normal Lungs: clear Cor: RRR Abd: soft, nontender Wound clean and dry Ext: no edema Preop Hgb 10.7 Postop Hgb 8.5 Urinary Catheter Management: Tejeda Latex: Cath Placed During This Visit: yes, but has since been removed by the nurse Reason for Continuing Indwelling Catheter: Decision to DC Catheter Urinary Catheter Date of Insertion: 04/04/25 Urinary Catheter Time of Insertion: 07:10 Date Urinary Catheter Removed: 04/04/25 Time Urinary Catheter Discontinued: 21:36 Data 04/04/25 19:39 A&P Assessment and plan (1) S/P : POD #1 repeat low-transverse doing well discharge home today instructions and precautions given call/return if fever, chills, nausea, vomiting, headaches, abdominal pain, bleeding, inability to void, swelling, leg pain; feelings of depression or mood changes; wound redness, swelling, or discharge; chest pain; shortness of breath f/u in 1 week or PRN (2) Anemia: Rx FeSO4 325 mg po BID Encouraged iron-rich foods PDMP PDMP Reviewed: Last Reviewed 04/05/25 11:33 EDT by Robert Parish MD Attestations 2 Medical Necessity Statement*: patient s/p , plan to discharge to home today Coding Level of Care Code Acute Code for Chg Fwd Diagnoses S/P Z98.891 Anemia D64.9
--- NOTE | 2025-04-05 12:15 | PM.OBGYDC ---
Discharge Providers TRANSPORTATION ASSISTANT Date of Admission: 04/04/25 05:17 Date of Discharge: 04/05/25 Attending Provider at Admission: Robert Parish MD Attending Provider at Discharge: Robert Parish MD Consults: none Primary TRANSPORTATION ASSISTANT: Robert Parish MD Diagnoses at Discharge Discharge Diagnosis (1) S/P : Details from hospital stay: 34 y.o. [facility] April 08, 2025 h/o c-sections x two admitted for elective repeat there were no complications patient underwent repeat low-transverse c-sections without any complications patient and baby did well Postoperatively, patient was afebrile; had mild pain and was eating and ambulating without any difficulties She did have postoperative anemia Patient was discharged to home on the first postoperative day Discharge medications included percocet and FeSO4 Status: Acute (2) Anemia: Details from hospital stay: see above Status: Acute Reason for Visit Reason for Visit: C Section Brief History: 34 y.o. [facility] April 08, 2025 h/o c-sections x two admitted for elective repeat Hospital Course Hospital Course 34 y.o. [facility] April 08, 2025 h/o c-sections x two admitted for elective repeat there were no complications patient underwent repeat low-transverse c-sections without any complications patient and baby did well Postoperatively, patient was afebrile; had mild pain and was eating and ambulating without any difficulties She did have postoperative anemia Patient was discharged to home on the first postoperative day Discharge medications included percocet and FeSO4 Information Peripartum Data: Infant Delivery Method: complications: none Physical Exam Narrative: General comfortable, awake, alert VS afebrile, normal Lungs: clear Cor: RRR Abd: soft, nontender Wound clean and dry Ext: no edema Urinary Catheter Management: Tejeda Latex: Cath Placed During This Visit: yes, but has since been removed by the nurse Reason for Continuing Indwelling Catheter: Decision to DC Catheter Urinary Catheter Date of Insertion: 04/04/25 Urinary Catheter Time of Insertion: 07:10 Date Urinary Catheter Removed: 04/04/25 Time Urinary Catheter Discontinued: 21:36 History History History 3 Term 2 0 Miscarriages/Ectopic 0 Living Children 2 Discharge Data Studies Completed and Pending Laboratory Results WBC 8.39 10^3/uL (3.29-11.43) 04/04/25 19:39 RBC 2.86 10^6/uL (3.85-5.65) L 04/04/25 19:39 Hgb 8.50 g/dL (11.27-16.99) L 04/04/25 19:39 Hct 25.9 % (36-47) L 04/04/25 19:39 MCV 90.6 fl (85-98) 04/04/25 19:39 MCH 29.7 pg (27-33) 04/04/25 19:39 MCHC 32.8 g/dL (30-55) 04/04/25 19:39 RDW 12.7 % (12.1-15.1) 04/04/25 19:39 Plt Count 156 10^3/cmm (157-399) L 04/04/25 19:39 MPV 10.8 fL (7.4-10.4) H 04/04/25 19:39 Neut % (Auto) 66.1 % 04/04/25 06:25 Lymph % (Auto) 20.1 % 04/04/25 06:25 [place] % (Auto) 11.9 % 04/04/25 06:25 Eos % (Auto) 1.1 % 04/04/25 06:25 Baso % (Auto) 0.3 % 04/04/25 06: Neut # (Auto) 4.03 10^3/uL (1.8-7.7) 04/04/25 06:25 Lymph # (Auto) 1.2 10^3/uL (0.8-4.8) 04/04/25 06:25 [place] # (Auto) 0.7 10^3/uL (0.2-0.9) 04/04/25 06:25 Eos # (Auto) 0.1 10^3/uL (0.0-0.8) 04/04/25 06:25 Baso # (Auto) 0.0 10^3/uL (0.0-0.1) 04/04/25 06:25 Nucleated RBC % (auto) 0 % 04/04/25 06: Nucleated RBCs # 0.0 /100WBC 04/04/25 06:25 Blood Type O Positive 04/04/25 06:25 Rho(D) Type Rh positive 04/04/25 06:25 Antibody Screen Negative 04/04/25 06:25 Procedures Performed repeat low-transverse Vitals Last Vital Signs Temp 97.5 F L 04/05/25 11:00 Pulse 67 04/05/25 13:45 Resp 15 04/05/25 13:45 BP 121/67 04/05/25 13:45 Pulse Ox 100 04/04/25 08:45 O2 Del Method Room Air 04/04/25 21:35 Results Labs OB ([facility]): Obstetrics US 03/02/25 Blood Type O Positive 04/04/25 Antibody Screen Negative 04/04/25 Hct, (36-47) 25.9 % L 04/04/25 Hgb, (11.27-16.99) 8.50 g/dL L 04/04/25 Rho(D) Type Rh positive 04/04/25 Plt Count, (157-399) 156 10^3/cmm L 04/04/25 Hep Bs Antigen, (Nonreactive) Non-reactive 10/11/24 Hepatitis C Antibody, (Nonreactive) Non-reactive 10/11/24 Rubella IgG Antibody, (0.0-10.0) 29.4 IU/mL H 10/11/24 RPR, (Nonreactive) Nonreactive 10/11/24 HIV 1&2 Ab & HIV 1 Ag, (Non-Reactiv) Non-reactive 10/11/24 TSH, (0.27-4.20) 2.11 uIU/mL 10/11/24 Glucose 1 Hr 50 gm, (85-140) 90 mg/dL 01/18/25 HCG, Qual, (Negative) Positive H 10/11/24 Urine Opiates Screen, (Negative) Negative ng/mL 10/11/24 Ur Barbiturates Screen, (Negative) Negative ng/mL 10/11/24 Ur Phencyclidine Scrn, (Negative) Negative ng/mL 10/11/24 Ur Amphetamines Screen, (Negative) Negative ng/mL 10/11/24 U Benzodiazepines Scrn, (Negative) Negative ng/mL 10/11/24 Urine Cocaine Screen, (Negative) Negative ng/mL 10/11/24 U Marijuana (THC) Screen, (Negative) Negative ng/mL 10/11/24 Micro Urine Specimen 10/11/24 Pap Smear Interpret See note 10/25/24 Discharge Plan Discharge Patient Disposition: Home Condition: Stable Prescriptions: New oxycodone-acetaminophen [Percocet] 5-325 mg tablet 1 tab PO Q8H PRN (Reason: pain) Qty: 30 0RF Continued famotidine [Pepcid] 20 mg tablet 20 mg PO BID Qty: 60 2RF docusate sodium [Colace] 100 mg capsule 100 mg PO BID Qty: 60 3RF Discharge Orders: Discharge Order (Routine); Ordered 04/05/25 Ordered By: Robert Parish Referrals: Irais Kulkarni NP [Nurse Practitioner, TRANSPORTATION ASSISTANT] - 04/13/25 12:45 pm Robert Parish MD [Physician, TRANSPORTATION ASSISTANT] Discharge Diet: Usual diet Discharge Activity: Increase activity as tolerated Patient Instructions: Depression (DC), Bleeding (DC), Preeclampsia and Eclampsia After Delivery (GEN), Hemorrhage (DC), OB [facility], OB Discharge Report, OB Food/Drug Interaction Guide, Opioid Safety, OB Home Care, OB [facility] Parent Packet, Patient Portal & [place] Instructions Discharge Attestations TRANSPORTATION ASSISTANT Time Spent in Discharge Care*: less than 30 min Coding Level of Care Code Acute Code for Chg Fwd Diagnoses S/P Z98.891 Anemia D64.9
[2025-04-05 13:45] VITALS: BP 121/67; PULSE 67; RESP 15
== END 2025-04-05 13:45 | disposition home or self-care (01) | DRG 788 ==
PROVIDERS: Admitting Provider Obstetrics & Gynecology; Visit Provider Obstetrics & Gynecology
PROC: 10D00Z1 Extraction of Products of Conception, Low, Open Approach (ICD-10-PCS; CPT 59514; principal; 2025-04-04 07:00)
DX: O34.211 Maternal care for low transverse scar from previous cesarean delivery (principal); Z3A.39 39 weeks gestation of pregnancy; Z37.0 Single live birth; O99.02 Anemia complicating childbirth
CPT/HCPCS: 51702; 59409; 85025; 85027; 86850; 86900; 96374; 96376; J1885; J2274; J2371; J2405; J2765; J3010; J3490; J7030; J9999

== ENCOUNTER → 2025-05-10 08:50 | Outpatient (BNVA) | payer BC, SELFPAY | PROVIDERS: Family Provider Physician Assistant Medical; PCP Physician Assistant Medical; Visit Provider Nurse Practitioner Women's Health | DX: D64.9 Anemia, unspecified (principal) | CPT/HCPCS: 85025 ==

== ENCOUNTER 2025-05-25 13:19 | Outpatient (CLI) | payer BC, SELFPAY ==
--- NOTE | 2025-05-25 13:30 | US_ITS ---
WS: [id number] ULTRASOUND BREAST BILATERAL TECHNIQUE: Ultrasound bilateral breast focused area of concern. CLINICAL INFORMATION: N64.4 - Mastodynia COMPARISON: None. FINDINGS: RIGHT BREAST: RIGHT breast ultrasound demonstrates dense underlying parenchymal tissue with areas of ductal dilatation. No suspicious cystic or solid lesions. LEFT BREAST: RIGHT breast ultrasound demonstrates dense underlying parenchymal tissue with areas of ductal dilatation. No suspicious cystic or solid lesions. No suspicious lesions to target for biopsy. Findings are benign. US/US breast BI complete [id number] IMPRESSION: BI-RADS 2 benign Recommend annual screening mammography age 40
== END 2025-05-25 13:20 | disposition home or self-care (01) ==
LOC: RAD 13:20
PROVIDERS: Family Provider Physician Assistant Medical; PCP Physician Assistant Medical; Visit Provider Nurse Practitioner Women's Health
DX: N64.4 Mastodynia (principal); R92.313 Mammographic fatty tissue density, bilateral breasts
CPT/HCPCS: 76641